=== PATIENT | male | born 1970 | race Hispanic/Latino ===

== ENCOUNTER 2020-07-07 12:41 | Emergency (ER) | payer SELFPAY ==
[~2020-07-07] VITALS: Ht 154.9 cm; Wt 50.0 kg
[2020-07-07 14:37] VITALS: BP 143/86
== END 2020-07-07 14:41 | disposition home or self-care (01) | DRG 159 ==
LOC: ED 12:41
DX: K02.9 Dental caries, unspecified (principal)